=== PATIENT | male | born 1975 | race Caucasian/White ===

== ENCOUNTER 2016-08-14 23:29 | Emergency (ER) | payer MEDICAID ==
[2016-08-14 23:52] VITALS: PULSE 86; RESP 18; TEMP 97.9
[2016-08-14 23:53] VITALS: BMI 25.0
--- NOTE | 2016-08-15 00:06 | ED PDOC ---
Arrival/HPI - General Chief Complaint: Chest Pain Time Seen by Provider: 08/14/16 23:40 Historian: Patient - History of Present Illness Narrative History of Present Illness (Text): 08/15/16 00:05 Jimenez Coyle is a 41 year old male smoker, with no significant past medical history, who presents to the Emergency department complaining of mid-sternal chest pain for 1 hour prior to arrival. Patient reports associated shortness of breath and notes he has been feeling stressed after he recently got in to an argument with his 3 days ago. Patient denies any fever, chills, nausea, vomiting, diarrhea, urinary symptoms, back pain, neck pain, headache, dizziness , or any other complaints. Time/Duration: 1 hour Symptom Onset: Gradual Symptom Course: Unchanged Activities at Onset: Rest, Light Context: Home Past Medical History - Provider Review Nursing Documentation Reviewed: Yes - Infectious Disease Hx of Infectious Diseases: None - Tetanus Immunization Tetanus Immunization: Unknown - Past Medical History Past Medical History: No Previous - Psychiatric Hx Substance Use: No - Past Surgical History Past Surgical History: No Previous - Anesthesia Hx Anesthesia: No Hx Anesthesia Reactions: No Hx Malignant Hyperthermia: No - Suicidal Assessment Feels Threatened In Home Enviroment: No Family/Social History - Physician Review Nursing Documentation Reviewed: Yes Family/Social History: No Known Family HX Smoking Status: Heavy Smoker > 10 Cigarettes Daily Hx Alcohol Use: Yes Frequency of alcohol use: Socially Hx Substance Use: No Hx Substance Use Treatment: No Allergies/Home Meds Allergies/Adverse Reactions: Allergies No Known Allergies Allergy (Verified 10/02/14 00:14) Review of Systems - Physician Review All systems were reviewed & negative as marked: Yes - Review of Systems Constitutional: Normal. absent: Fevers Eyes: Normal ENT: Normal Respiratory: SOB Cardiovascular: Chest Pain Gastrointestinal: Normal. absent: Abdominal Pain, Diarrhea, Nausea, Vomiting Genitourinary Male: Normal. absent: Dysuria, Frequency, Hematuria, Urinary Output Changes Musculoskeletal: Normal. absent: Back Pain, Neck Pain Skin: Normal. absent: Rash Neurological: Normal. absent: Headache, Dizziness Endocrine: Normal Hemo/Lymphatic: Normal Psychiatric: Normal Physical Exam Vital Signs Reviewed: Yes Vital Signs Temp Pulse Resp BP Pulse Ox 08/15/16 04:02 86 18 118/76 98 08/14/16 23:51 97.9 F 86 18 122/83 96 Temperature: Afebrile Blood Pressure: Normal Pulse: Regular Respiratory Rate: Normal Appearance: Positive for: Well-Appearing, Non-Toxic, Comfortable Pain Distress: None Mental Status: Positive for: Alert and Oriented X 3 - Systems Exam Head: Present: Atraumatic, Normocephalic Pupils: Present: PERRL Extroacular Muscles: Present: EOMI Conjunctiva: Present: Normal Mouth: Present: Moist Mucous Membranes Neck: Present: Normal Range of Motion Respiratory/Chest: Present: Clear to Auscultation, Good Air Exchange. No: Respiratory Distress, Accessory Muscle Use Cardiovascular: Present: Regular Rate and Rhythm, Normal S1, S2. No: Murmurs Abdomen: Present: Normal Bowel Sounds. No: Tenderness, Distention, Peritoneal Signs Back: Present: Normal Inspection Upper Extremity: Present: Normal Inspection. No: Cyanosis, Edema Lower Extremity: Present: Normal Inspection. No: Edema Neurological: Present: GCS=15, CN II-XII Intact, Speech Normal Skin: Present: Warm, Dry, Normal Color. 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 Plan: -- EKG -- Chest X-ray -- Labs, cardiac enzymes -- Aspirin -- Reassess and disposition Progress Notes: Reviewed EKG, sinus tachycardia at [address] bpm[address] Non-specific ST/T wave changes. 08/15/16 02:33 Reviewed radiology, CXR shows no active disease. 08/15/16 02:42 Case discussed with medical driver, who is aware and agrees with plan. House physician paged. 08/15/16 03:[address] Lopez, who is aware and agrees with plan. Accepts pt in to hospitalist service. Pt will go to Telemetry observation for chest pain. Pt is no acute distress. Discussed results and hospital observation plan with pt , who is aware and verbalizes understanding. - Lab Interpretations Lab Results: 08/15/16 00:45 08/15/16 00:45 Lab Results 08/15/16 00:45: WBC 6.9, RBC 5.05, Hgb 14.4, Hct 42.0, MCV 83.2, MCH 28.5, MCHC 34.3, RDW 15.1 H, Plt Count 372, MPV 9.8, PT 11.5, INR 1.06, APTT 31.5 H, Sodium 141, Potassium 3.6, Chloride 103, Carbon Dioxide 24, Anion Gap 18, BUN 17 , Creatinine 0.7, Est GFR ( Amer) > 60, Est GFR (Non-Af Amer) > 60, Random Glucose 86, Calcium 9.5, Total Bilirubin 0.8, AST 23, ALT 35, Alkaline Phosphatase 49, Lactate Dehydrogenase 360, Total Creatine Kinase 82, Troponin I < 0.01, Total Protein 8.3, Albumin 4.6, Globulin 3.7, Albumin/Globulin Ratio 1.2 I have reviewed the lab results: Yes - RAD Interpretation Radiology Orders: 08/15/16 00:06 CHEST PORTABLE [RAD] Stat Sales Administration Manager: ED Physician - EKG Interpretation Interpreted by ED Physician: Yes Type: 12 lead EKG - Medication Orders Current Medication Orders: Discontinued Medications Aspirin (Aspirin) 325 mg PO ONCE STA Stop: 08/15/16 00:11 Last Admin: 08/15/16 00:49 Dose: 325 MG Aspirin (Aspirin Chewable) 81 mg PO DAILY YUE Ibuprofen (Motrin Tab) 600 mg PO Q6H PRN PRN Reason: Pain, moderate (4-7) Pantoprazole Sodium (Protonix Ec Tab) 40 mg PO ACB YUE - Scribe Statement The provider has reviewed the documentation as recorded by the Evangelina Lauren Provider Attestation: All medical record entries made by the Bonibpaul were at my direction and personally dictated by me. I have reviewed the chart and agree that the record accurately reflects my personal performance of the history, physical exam, medical decision making, and the department course for this patient. I have also personally directed, reviewed, and agree with the discharge instructions and disposition. Disposition/Present on Arrival - Present on Arrival Any Indicators Present on Arrival: No History of DVT/PE: No History of Uncontrolled Diabetes: No Urinary Catheter: No History of Decub. Ulcer: No History Surgical Site Infection Following: None - Disposition Have Diagnosis and Disposition been Completed?: Yes Diagnosis: Chest pain Disposition: AGAINST MEDICAL ADVICE Disposition Time: 02:56 Patient Plan: Observation Condition: GOOD
[2016-08-15 01:02] LABS: MEAN CELL VOLUME 83.2 fL (80.0-105.0); MEAN CORPUSCULAR HEMOGLOBIN 28.5 pg (25.0-35.0); MEAN CORPUSCULAR HGB CONC 34.3 g/dl (31.0-37.0); MEAN PLATELET VOLUME 9.8 fl (7.0-11.0); RED CELL DISTRIBUTION WIDTH 15.1 % (11.5-14.5); WHITE BLOOD COUNT 6.9 10^3/ul (4.5-11.0)
[2016-08-15 01:14] LABS: INR 1.06 (0.93-1.08); PARTIAL THROMBOPLASTIN TIME 31.5 Seconds (23.7-30.8)
[2016-08-15 01:15] LABS: ALB/GLOB RATIO 1.2 (1.1-1.8); ALKALINE PHOSPHATASE 49 U/L (38-133); ALT/SGPT 35 U/L (7-56); AST/SGOT 23 U/L (15-59); BILIRUBIN,TOTAL 0.8 mg/dL (0.2-1.3); CALCIUM 9.5 mg/dL (8.4-10.5); CARBON DIOXIDE 24 mmol/L (21-33); CHLORIDE 103 mmol/L (98-107); GFR AFRICAN-AMERICAN > 60; GLUCOSE,RANDOM 86 mg/dL (70-110); POTASSIUM 3.6 mmol/L (3.6-5.0); SODIUM 141 mmol/L (132-148); TOTAL PROTEIN 8.3 g/dL (5.8-8.3)
[2016-08-15 01:16] LABS: BLOOD UREA NITROGEN 17 mg/dL (7-21)
[2016-08-15 01:30] LABS: TROPONIN I < 0.01 ng/mL
[2016-08-15 03:37] LABS: CHOLESTEROL 177 mg/dL (130-200)
--- NOTE | 2016-08-15 03:38 | CP.PCM.HP ---
<Rozina Burgess - Last Filed: 08/15/16 03:34> History of Present Illness - History of Present Illness History of Present Illness: This is a 41Y M with PMH of GERD who came to the ED for chest pain x 1 day. Today he was having an argument with his when he began to have chest pain. It is located on the L side of his chest. The pain is dull, intermittent and does not hurt with palpation or radiate. He has had this in the past last year and was found to be secondary to GERD. He denies having abdominal pain, reflux symptoms. He does report being under a lot of stress lately and has increased his smoking from 1ppd to 2ppd the past week. He denies SOB, n/v/d, vision changes, palpitations, dysuria or hematuria. He reports chronic numbness in both the first 3 fingers of both his hands bilaterally. 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 PMH: GERD PSH: Denies Home meds: None ALL: NKDA SH: Smokes 1ppd x 20yrs (2ppd this week), drinks 1-2 beers per week, denies drug use FH: Denies Present on Admission - Present on Admission Any Indicators Present on Admission: No Review of Systems - Review of Systems Review of Systems: As per HPI Past Patient History - Infectious Disease Hx of Infectious Diseases: None - Tetanus Immunizations Tetanus Immunization: Unknown - Past Social History Smoking Status: Heavy Smoker > 10 Cigarettes Daily Alcohol: Occasional Drugs: Denies Home Situation {Lives}: With Family - PSYCHIATRIC Hx Substance Use: No - SURGICAL HISTORY Hx Surgeries: No - ANESTHESIA Hx Anesthesia: No Hx Anesthesia Reactions: No Hx Malignant Hyperthermia: No Meds Allergies/Adverse Reactions: Allergies Allergy/AdvReac Type Severity Reaction Status Date / Time No Known Allergies Allergy Verified 10/02/14 00:14 Physical Exam - Constitutional Appears: No Acute Distress - Head Exam Head Exam: ATRAUMATIC, NORMAL INSPECTION, NORMOCEPHALIC - Eye Exam Eye Exam: Normal appearance, PERRL Pupil Exam: NORMAL ACCOMODATION, PERRL - ENT Exam ENT Exam: Mucous Membranes Moist - Respiratory Exam Respiratory Exam: Clear to Auscultation Bilateral, NORMAL BREATHING PATTERN. absent: Rales, Rhonchi, Wheezes - Cardiovascular Exam Cardiovascular Exam: REGULAR RHYTHM, +S1, +S2. absent: Gallop, Rubs, Systolic Murmur - GI/Abdominal Exam GI & Abdominal Exam: Normal Bowel Sounds, Soft. absent: Mass, Rebound, Rigid, Tenderness - Extremities Exam Extremities exam: Positive for: normal inspection. Negative for: pedal edema Additional comments: + Tinel and phalen test bilaterally - Neurological Exam Neurological exam: Alert, CN II-XII Intact, Oriented x3 - Psychiatric Exam Psychiatric exam: Normal Affect, Normal Mood - Skin Skin Exam: Dry, Normal Color, Warm Results - Vital Signs Recent Vital Signs: Last Vital Signs Temp 97.9 F 08/14/16 23:51 Pulse 86 08/14/16 23:51 Resp 18 08/14/16 23:51 BP 122/83 08/14/16 23:51 Pulse Ox 96 08/14/16 23:51 - Labs Result Diagrams: 08/15/16 00:45 08/15/16 00:45 Labs: Laboratory Results - last 24 hr 08/15/16 00:45 WBC 6.9 RBC 5.05 Hgb 14.4 Hct 42.0 MCV 83.2 MCH 28.5 MCHC 34.3 RDW 15.1 H Plt Count 372 MPV 9.8 PT 11.5 INR 1.06 APTT 31.5 H Sodium 141 Potassium 3.6 Chloride 103 Carbon Dioxide 24 Anion Gap 18 BUN 17 Creatinine 0.7 Est GFR ( Amer) > 60 Est GFR (Non-Af Amer) > 60 Random Glucose 86 Calcium 9.5 Total Bilirubin 0.8 AST 23 ALT 35 Alkaline Phosphatase 49 Lactate Dehydrogenase 360 Total Creatine Kinase 82 Troponin I < 0.01 Total Protein 8.3 Albumin 4.6 Globulin 3.7 Albumin/Globulin Ratio 1.2 - EKG Data EKG Interpreted by: ER Physician EKG shows normal: Sinus rhythm Rate: Normal Assessment & Plan - Assessment and Plan (Free Text) Assessment: This is a 41Y M with PMH of GERD admitted for chest pain r/o ACS. Plan: 1. Chest pain r/o ACS - EKG showed NSR - CXR showed no active disease - Troponin neg x 1- will repeat x 2 - Cardio consulted - Will check TSH, Lipid panel, HgbA1c - ASA in AM - Ibuprofen prn pain 2. Hx of GERD - Protonix 3. Carpal tunnel - + Tinel and Phalen bilateral - Recommend outpatient wrist guard GI ppx: Protonix DVT ppx: SCDs Case seen, reviewed and discussed with attending Niyah Burgess PGY1 - Date & Time Date: 08/15/16 Time: 03:42 <Jose Martin Lopez - Last Filed: 08/15/16 05:15> Results - Vital Signs Recent Vital Signs: Last Vital Signs Temp 97.9 F 08/14/16 23:51 Pulse 86 08/15/16 04:02 Resp 18 08/15/16 04:02 BP 118/76 08/15/16 04:02 Pulse Ox 98 08/15/16 04:02 - Labs Result Diagrams: 08/15/16 00:45 08/15/16 00:45 Labs: Laboratory Results - last 24 hr 08/15/16 03:00 Triglycerides 75 Cholesterol 177 LDL Cholesterol Direct 115 HDL Cholesterol 37 Attending/Attestation - Attestation I have personally seen and examined this patient.: No I have fully participated in the care of the patient.: Yes I have reviewed all pertinent clinical information: Yes Notes (Text): 08/15/16 05:13 As soon as I came to ER to see him, he signed out.Discussed with . I was not able to evaluate patient. Agree with history ,physical examination, assessment and plan.
[2016-08-15 04:03] VITALS: BP 118/76; O2SAT 98
[2016-08-15] MEDS ORDERED: Pantoprazole 40 mg EC Tab PO SCH (07:30)
--- NOTE | 2016-08-15 08:41 | RAD ---
HISTORY: chest pain COMPARISON: 04/18/2016 FINDINGS: LUNGS: No infiltrate. Possible 7 mm nodule at right base. This is not seen on examination of 04/18/2016. Recommend upright PA and lateral chest radiograph when clinically feasible prior to further pursue with cross-sectional imaging. PLEURA: No significant pleural effusion identified, no pneumothorax apparent. CARDIOVASCULAR: Normal. OSSEOUS STRUCTURES: No significant abnormalities. VISUALIZED UPPER ABDOMEN: Normal. OTHER FINDINGS: None. IMPRESSION: Possible 7 mm nodule at right base. Recommend upright PA and lateral chest radiographs when clinically feasible.
--- NOTE | 2016-08-15 10:15 | CARD ---
APPROVED REPORT EKG Measurement Heart [id number] <Conclusion> Sinus tachycardia Possible Left atrial enlargement Borderline ECG
== END 2016-08-15 04:05 | disposition left against medical advice (07) ==
LOC: ED 23:29 → UNDOADMOB 08-15 02:59 → ERH 08-15 02:59 → UNDODISOB 08-15 04:16
DX: R07.9 Chest pain, unspecified (principal)

== ENCOUNTER 2017-02-01 10:31 | Day surgery (SDC) | payer MEDICAID ==
[2017-01-19 13:49] VITALS: BMI 22.8
[2017-02-01 11:09] VITALS: TEMP 98
[2017-02-01] MEDS ORDERED: Propofol 10 mg/ml Inj (20 ML) ONE ×2 (12:11→12:26)
[2017-02-01] MEDS ORDERED: Sodium Chloride 0.9% 1,000 ML IV SCH (12:45)
[2017-02-01 13:26] VITALS: PULSE 61; RESP 16
[2017-02-01 13:40] VITALS: BP 98/67; O2SAT 99
== END 2017-02-01 13:54 | disposition home or self-care (01) ==
LOC: ENDO 10:31
PROVIDERS: ATTEND Internal Medicine Gastroenterology
DX: K21.9 Gastro-esophageal reflux disease without esophagitis (principal); K29.50 Unspecified chronic gastritis without bleeding; B96.81 Helicobacter pylori [H. pylori] as the cause of diseases classified elsewhere; K31.9 Disease of stomach and duodenum, unspecified; K44.9 Diaphragmatic hernia without obstruction or gangrene
CPT/HCPCS: 43239; 88305; 88312; 88342; J2001; J2704; J3010; J7040 ×2